=== PATIENT | female | born 1945 | race Caucasian/White ===

== ENCOUNTER 2023-11-28 07:53 | Outpatient (CLI) | payer MEDICARE, BC, SELFPAY | END 2023-11-28 07:54 | disposition home or self-care (01) | PROVIDERS: PCP Family Medicine; Visit Provider Surgery | DX: I87.2 Venous insufficiency (chronic) (peripheral) (principal); L97.322 Non-pressure chronic ulcer of left ankle with fat layer exposed; I71.21 Aneurysm of the ascending aorta, without rupture | CPT/HCPCS: 97597; G0463 ==

== ENCOUNTER 2023-12-05 10:29 | Outpatient (CLI) | payer MEDICARE, BC, SELFPAY | END 2023-12-05 10:30 | disposition home or self-care (01) | LOC: WOUND 10:29 | PROVIDERS: PCP Family Medicine; Visit Provider Surgery | DX: I87.2 Venous insufficiency (chronic) (peripheral) (principal); L97.328 Non-pressure chronic ulcer of left ankle with other specified severity | CPT/HCPCS: 11042 ==

== ENCOUNTER 2023-12-12 09:09 | Outpatient (CLI) | payer MEDICARE, BC, SELFPAY | END 2023-12-12 09:10 | disposition home or self-care (01) | LOC: WOUND 09:10 | PROVIDERS: PCP Family Medicine; Visit Provider Surgery | DX: I87.2 Venous insufficiency (chronic) (peripheral) (principal); L97.322 Non-pressure chronic ulcer of left ankle with fat layer exposed | CPT/HCPCS: 11042 ==

== ENCOUNTER 2023-12-19 09:57 | Outpatient (CLI) | payer MEDICARE, BC, SELFPAY | END 2023-12-19 09:58 | disposition home or self-care (01) | LOC: WOUND 09:57 | PROVIDERS: PCP Family Medicine; Visit Provider Surgery | DX: I87.2 Venous insufficiency (chronic) (peripheral) (principal); L97.328 Non-pressure chronic ulcer of left ankle with other specified severity | CPT/HCPCS: 97597 ==

== ENCOUNTER 2023-12-26 10:13 | Outpatient (CLI) | payer MEDICARE, BC, SELFPAY | END 2023-12-26 10:14 | disposition home or self-care (01) | LOC: WOUND 10:13 | PROVIDERS: PCP Family Medicine; Visit Provider Surgery | DX: I87.2 Venous insufficiency (chronic) (peripheral) (principal); L97.328 Non-pressure chronic ulcer of left ankle with other specified severity | CPT/HCPCS: 97597 ==

== ENCOUNTER 2024-01-01 14:12 | Outpatient (CLI) | payer MEDICARE, BC, SELFPAY | END 2024-01-01 14:13 | disposition home or self-care (01) | LOC: WOUND 14:12 | PROVIDERS: PCP Family Medicine; Visit Provider Nurse Practitioner Family | DX: I87.312 Chronic venous hypertension (idiopathic) with ulcer of left lower extremity (principal); I87.2 Venous insufficiency (chronic) (peripheral); L97.322 Non-pressure chronic ulcer of left ankle with fat layer exposed | CPT/HCPCS: 97597 ==

== ENCOUNTER 2024-01-09 10:21 | Outpatient (CLI) | payer MEDICARE, BC, SELFPAY | END 2024-01-09 10:22 | disposition home or self-care (01) | LOC: WOUND 10:21 | PROVIDERS: PCP Family Medicine; Visit Provider Surgery | DX: I87.312 Chronic venous hypertension (idiopathic) with ulcer of left lower extremity (principal); I87.2 Venous insufficiency (chronic) (peripheral); L97.322 Non-pressure chronic ulcer of left ankle with fat layer exposed | CPT/HCPCS: 97597 ==

== ENCOUNTER 2024-01-16 10:14 | Outpatient (CLI) | payer MEDICARE, BC, SELFPAY | END 2024-01-16 10:15 | disposition home or self-care (01) | LOC: WOUND 10:14 | PROVIDERS: PCP Family Medicine; Visit Provider Surgery | DX: I87.312 Chronic venous hypertension (idiopathic) with ulcer of left lower extremity (principal); I87.2 Venous insufficiency (chronic) (peripheral); L97.322 Non-pressure chronic ulcer of left ankle with fat layer exposed | CPT/HCPCS: 97597 ==

== ENCOUNTER 2024-01-23 10:14 | Outpatient (CLI) | payer MEDICARE, BC, SELFPAY | END 2024-01-23 10:15 | disposition home or self-care (01) | LOC: WOUND 10:15 | PROVIDERS: PCP Family Medicine; Visit Provider Surgery | DX: I87.312 Chronic venous hypertension (idiopathic) with ulcer of left lower extremity (principal); I87.2 Venous insufficiency (chronic) (peripheral); L97.322 Non-pressure chronic ulcer of left ankle with fat layer exposed | CPT/HCPCS: 97597 ==

== ENCOUNTER 2024-01-30 10:16 | Outpatient (CLI) | payer MEDICARE, BC, SELFPAY | END 2024-01-30 10:17 | disposition home or self-care (01) | LOC: WOUND 10:16 | PROVIDERS: PCP Family Medicine; Visit Provider Surgery | DX: I87.312 Chronic venous hypertension (idiopathic) with ulcer of left lower extremity (principal); I87.2 Venous insufficiency (chronic) (peripheral); L97.328 Non-pressure chronic ulcer of left ankle with other specified severity | CPT/HCPCS: G0463 ==

== ENCOUNTER 2024-02-06 10:18 | Outpatient (CLI) | payer MEDICARE, BC, SELFPAY | END 2024-02-06 10:19 | disposition home or self-care (01) | LOC: WOUND 10:19 | PROVIDERS: PCP Family Medicine; Visit Provider Nurse Practitioner Family | DX: I87.302 Chronic venous hypertension (idiopathic) without complications of left lower extremity (principal); I71.21 Aneurysm of the ascending aorta, without rupture | CPT/HCPCS: G0463 ==

== ENCOUNTER 2024-08-07 12:19 | Outpatient (CLI) | payer MEDICARE, BC, SELFPAY | END 2024-08-07 12:20 | disposition home or self-care (01) | LOC: WOUND 12:19 | PROVIDERS: PCP Family Medicine; Visit Provider Nurse Practitioner Family | DX: I87.302 Chronic venous hypertension (idiopathic) without complications of left lower extremity (principal); Z87.2 Personal history of diseases of the skin and subcutaneous tissue | CPT/HCPCS: G0463 ==